=== PATIENT | female | born 1970 | race Hispanic/Latino ===

== ENCOUNTER 2017-02-25 10:38 | Emergency (ER) | payer OTHER, BC ==
[2017-02-25 10:48] VITALS: BP 114/70; PULSE 86; RESP 18; TEMP 97.9; O2SAT 100
--- NOTE | 2017-02-25 11:37 | ED PDOC ---
HPI: Back Time Seen by Provider: 02/25/17 11:35 Chief Complaint (Nursing): Back Pain Chief Complaint (Provider): back pain History Per: Patient (46 y/o female here with complaint of lower back pain that occurred after slip on wet stairs outside of school. Denies any head injury/ LOC. ABle to ambulate but with pain. Is not on any medications/anti- coagulants. Has not taken any pain medications prior to ED arrival. ) Past Medical History Reviewed: Historical Data, Nursing Documentation, Vital Signs Vital Signs: Last Vital Signs Temp 97.9 F 02/25/17 10:47 Pulse 86 02/25/17 10:47 Resp 18 02/25/17 10:47 BP 114/70 02/25/17 10:47 Pulse Ox 100 02/25/17 10:47 - Family History Family History: States: No Known Family Hx - Home Medications Home Medications: Ambulatory Orders Medication Instructions Recorded Naproxen [Naprosyn Tab] 375 mg PO Q8 PRN #21 tab 02/25/17 diaZEpam [Valium] 5 mg PO Q6 PRN #4 tab 02/25/17 - Allergies Allergies/Adverse Reactions: Allergies Allergy/AdvReac Type Severity Reaction Status Date / Time No Known Allergies Allergy Verified 02/25/17 10:46 Review of Systems ROS Statement: Except As Marked, All Systems Reviewed And Found Negative Musculoskeletal: Positive for: Back Pain Physical Exam - Reviewed Nursing Documentation Reviewed: Yes Vital Signs Reviewed: Yes - Physical Exam Appears: Positive for: Well, Non-toxic, No Acute Distress Head Exam: Positive for: ATRAUMATIC, NORMAL INSPECTION, NORMOCEPHALIC Skin: Positive for: Normal Color, Warm, DRY Eye Exam: Positive for: EOMI, Normal appearance, PERRL ENT: Positive for: Normal ENT Inspection Neck: Positive for: Normal, Painless ROM Cardiovascular/Chest: Positive for: Regular Rate, Rhythm Respiratory: Positive for: CNT, Normal Breath Sounds Gastrointestinal/Abdominal: Positive for: Normal Exam, Bowel Sounds, Soft Back: Positive for: Normal Inspection, Vertebral Tenderness (paralumbar tenderness lower spine.) Extremity: Positive for: Normal ROM Neurologic/Psych: Positive for: Alert, Oriented - ECG O2 Sat by Pulse Oximetry: 100 - Progress ED Course And Treament: toradol 60mg IM x 1 dose L spine xry: no fx noted Disposition - Clinical Impression Clinical Impression: Back injury - Patient ED Disposition Is Patient to be Admitted: No - Disposition Referrals: [facility] [Outside] Disposition: Routine/Home Disposition Time: 11:59 Condition: FAIR Prescriptions: diaZEpam [Valium] 5 mg PO Q6 PRN #4 tab PRN Reason: Muscle Spasm Naproxen [Naprosyn Tab] 375 mg PO Q8 PRN #21 tab PRN Reason: Pain, Moderate (4-7) Instructions: Acute Low Back Pain (ED) Forms: [facility] ED School/Work Excuse
--- NOTE | 2017-02-25 12:16 | RAD ---
PROCEDURE: Radiographs of the Lumbar Spine. HISTORY: back injury COMPARISON: None available. FINDINGS: BONES: Alignment appears satisfactory. No listhesis. Osseous demineralization limits evaluation for acute fracture lines. No acute displaced fracture identified. Mild degenerative changes including small anterior osteophyte formation. DISC SPACES: Unremarkable. OTHER FINDINGS: None. IMPRESSION: Osseous demineralization. Mild degenerative changes. No acute displaced fracture or subluxation identified.
== END 2017-02-25 12:32 | disposition home or self-care (01) ==
LOC: H.ER 10:38
DX: S39.92XA Unspecified injury of lower back, initial encounter (principal); W10.9XXA Fall (on) (from) unspecified stairs and steps, initial encounter; Y92.218 Other school as the place of occurrence of the external cause
CPT/HCPCS: 72100; 96372; 99282; J1885

== ENCOUNTER 2018-07-02 09:14 | Emergency (ER) | payer BC, OTHER ==
[2018-07-02 09:29] VITALS: BMI 29.7
[2018-07-02 09:39] VITALS: O2SAT 98
[2018-07-02] MEDS ORDERED: Lidocaine 5% Patch TD STA (10:01)
--- NOTE | 2018-07-02 10:14 | ED PDOC ---
Lower Extremity Pain/Injury Time Seen by Provider: 07/02/18 09:38 Chief Complaint (Nursing): Lower Extremity Problem/Injury Chief Complaint (Provider): Left Hip Pain History Per: Patient History/Exam Limitations: no limitations Onset/Duration Of Symptoms: Days (x2) Current Symptoms Are (Timing): Still Present Additional Complaint(s): 48 year old female with no significant past medical history presenting for evaluation of left hip pain x2 days. Patient states she woke up with the pain 2 days ago with the pain and reports it radiates down to her left thigh. Patient r eports taking Aleve with no relief, and Naproxen 1 hour prior to arrival with some relief of pain. Patient reports she is able to ambulate unassisted with pain. Patient reports pain with ambulation, but otherwise denies any recent fall or trauma, numbness, tingling, chest pain, shortness of breath, headache, dizziness, back pain, muscle spasm, urinary complaints, and bladder or bowel incontinence. Past Medical History Reviewed: Historical Data, Nursing Documentation, Vital Signs Vital Signs: Last Vital Signs Temp 97.8 F 07/02/18 09:29 Pulse 66 07/02/18 09:29 Resp 17 07/02/18 09:29 BP 110/75 07/02/18 09:29 Pulse Ox 98 07/02/18 09:35 - Medical History PMH: No Chronic Diseases - Surgical History Surgical History: Tonsillectomy - Family History Family History: States: Unknown Family Hx - Home Medications Home Medications: Ambulatory Orders Medication Instructions Recorded Naproxen [Naprosyn Tab] 375 mg PO Q8 PRN #21 tab 02/25/17 diaZEpam [Valium] 5 mg PO Q6 PRN #4 tab 02/25/17 Ibuprofen [Motrin] 600 mg PO TID 7 Days tab 07/02/18 Lidocaine 5% [Lidoderm] 1 ea TD DAILY PRN #5 patch 07/02/18 - Allergies Allergies/Adverse Reactions: Allergies Allergy/AdvReac Type Severity Reaction Status Date / Time No Known Allergies Allergy Verified 07/02/18 09:35 Review of Systems ROS Statement: Except As Marked, All Systems Reviewed And Found Negative Constitutional: Negative for: Fever, Chills Cardiovascular: Negative for: Chest Pain Respiratory: Negative for: Shortness of Breath Gastrointestinal: Negative for: Abdominal Pain Genitourinary Female: Negative for: Dysuria, Frequency, Incontinence, Hematuria Musculoskeletal: Positive for: Other (left hip and left thigh pain). Negative for: Back Pain Neurological: Negative for: Numbness, Headache, Dizziness Physical Exam - Reviewed Nursing Documentation Reviewed: Yes Vital Signs Reviewed: Yes - Physical Exam Appears: Positive for: Non-toxic, No Acute Distress Head Exam: Positive for: ATRAUMATIC, NORMAL INSPECTION, NORMOCEPHALIC Skin: Positive for: Normal Color, Warm, Dry. Negative for: Rash Eye Exam: Positive for: EOMI, Normal appearance, PERRL Neck: Positive for: Normal, Painless ROM, Supple Cardiovascular/Chest: Positive for: Regular Rate, Rhythm. Negative for: Murmur Respiratory: Positive for: Normal Breath Sounds. Negative for: Respiratory Distress Gastrointestinal/Abdominal: Positive for: Normal Exam, Soft. Negative for: Tenderness Back: Positive for: Normal Inspection. Negative for: L CVA Tenderness, R CVA Tenderness, Vertebral Tenderness Extremity: Positive for: Normal ROM, Tenderness (localized to left posterior hip area, (-) straight leg raise) Neurologic/Psych: Positive for: Alert, Oriented. Negative for: Motor/Sensory Deficits - ECG O2 Sat by Pulse Oximetry: 98 (RA) Pulse Ox Interpretation: Normal - Radiology X-Ray: Read By Radiologist X-Ray Interpretation: No Acute Disease - Progress ED Course And Treament: 1100: Stable. AAOx3. Pain free. Tolerated PO. Ambulated with no issues. Fu with pcp. Medical Decision Making Medical Decision Makin Plan: -Urine dip -Lidocaine patch -Left hip x-ray -Reevaluation Scribe Attestation: Documented by Trae Santos, acting as a scribe for Hudson Sexton MD. Provider Scribe Attestation: All medical record entries made by the Scribe were at my direction and personally dictated by me. I have reviewed the chart and agree that the record accurately reflects my personal performance of the history, physical exam, medical decision making, and the department course for this patient. I have also personally directed, reviewed, and agree with the discharge instructions and disposition. Disposition - Clinical Impression Clinical Impression: Hip pain - Patient ED Disposition Is Patient to be Admitted: No Counseled Patient/Family Regarding: Studies Performed, Diagnosis, Need For Followup, Rx Given - Disposition Referrals: [facility] [Outside] - 07/03/18 Disposition: Routine/Home Disposition Time: 11:01 Condition: STABLE Additional Instructions: Return if not better in 3 days. Prescriptions: Ibuprofen [Motrin] 600 mg PO TID 7 Days tab Lidocaine 5% [Lidoderm] 1 ea TD DAILY PRN #5 patch PRN Reason: Pain, Moderate (4-7) Instructions: Hip Pain Forms: [facility] (Slovak), [facility] ED School/Work Excuse
[2018-07-02] MEDS ORDERED: Lidocaine 5% Patch TD ONE (10:15)
--- NOTE | 2018-07-02 10:36 | RAD ---
Date of service: 07/02/2018 PROCEDURE: HISTORY: pain COMPARISON: None TECHNIQUE: AP pelvis and frog's leg view. FINDINGS: No fracture or dislocation. 2.1 x 0.7 cm geographic radiolucency over left iliac bone either benign-appearing intraosseous lesion versus air pocket in descending colon. The latter is believe more likely. However the left colon appears collapse compared to the moderate stool in the more distended right colon. Left and right hemipelvic phleboliths. Unremarkable SI joints. Minimal superior pubic symphyseal osseous hypertrophy. Bilateral superolateral hip joint space narrowing. No prominent spurring. IMPRESSION: No fracture of either hip. Other findings as above.
[2018-07-02 11:10] VITALS: BP 112/78; PULSE 70; RESP 20; TEMP 98
== END 2018-07-02 11:11 | disposition home or self-care (01) ==
LOC: H.ER 09:14
DX: M25.552 Pain in left hip (principal)